=== PATIENT | female | born 2000 | race Caucasian/White ===

== ENCOUNTER 2024-02-22 23:40 | Observation (INO) | payer OTHER ==
[2024-02-23 00:08] VITALS: TEMP 98.3
[2024-02-23 00:30] LABS: AMNISURE TEST RESULTS NEGATIVE (NEGATIVE)
[2024-02-23 00:36] LABS: Appearance Turbid (Clear); Bacteria Many /HPF (None Seen); Bilirubin Negative (Negative); Blood Negative (Negative); Epithelial Cells Many /HPF (None Seen); Glucose, Urine Negative (Negative); Ketones 40 (Negative); Leukocyte Esterase Moderate (Negative); Nitrite Negative (Negative); Protein,Urine Dip 100 (Negative); RBC 0-2 /HPF (0-5); Specific Gravity >=1.030 (1.005-1.030); WBC 51-100 /HPF (0-5)
[2024-02-23 00:37] LABS: ADD URINE CULTURE? YES (NO); Trichomonas Few /HPF (None Seen)
[2024-02-23 00:39] LABS: Amphetamine,Urine NEGATIVE (NEGATIVE); Barbiturate,Urine NEGATIVE (NEGATIVE); Benzodiazepine,Urine NEGATIVE (NEGATIVE); Cocaine,Urine NEGATIVE (NEGATIVE); Opiate,Urine NEGATIVE (NEGATIVE); PCP,Urine NEGATIVE (NEGATIVE); THC,Urine POSITIVE (NEGATIVE)
[2024-02-23 00:42] LABS: Methadone,Urine NEGATIVE (NEGATIVE)
[2024-02-23 01:05] VITALS: BP 120/73; PULSE 102; RESP 17; O2SAT 98
--- NOTE | 2024-02-23 02:53 | PCM.HP ---
History of Present Illness - Chief Complaint Chief Complaint: R/O labor Date: 02/23/24 History of Present Illness: is a 23 year old female. P1001 @ 38 1/7 weeks presented from half-way C/O contractions and pressure. Pt received care at hospital in [place] and was supposed to have a planned c section tomorrow but was arrested. She came in c/o painful contractions, no LOF +FM UA showed trace protein, BP not elevated. Pt has a history of A fib and is on Metoprolol. POBHx: C/S x 1 PGYN:Non contributory PMHX: A fib, resolved PSHx: C/section PE: VS 131/93, 120/73 P99 rr 19 Pelvic: Closed/anterior/floating NST baseline 140 normal variability Contractions: q 10 minutes Ext: No edema A/P 23 y/o P1 previous c/section c/o abd pain but no evidence of labor Stable for D/C to half-way Pt will contact OB provider in [place] Gabriela Senior MD Medications & Allergies Home Medications: Home Medication List Pnv No.95/Ferrous Fum/Folic AC [ Vitamin Tablet] 1 each PO DAILY 02/22/24 [History Confirmed 02/22/24] Allergies/Adverse Reactions: Allergies Allergy/AdvReac Type Severity Reaction Status Date / Time magnesium AdvReac Rash Verified 02/22/24 23:57 - Social History Smoking Status: Never smoker Exposure to second hand smoke: Yes - Social Determinants of Health Will the patient participate in the screening: Yes Do you worry about a steady place to live?: No Do you have any problems with any of the following?: No known problems In the past 12 months,have you had to go without utilities?: No Have you or anyone in your house had to go without enough: No Transportation Issues: No Has anyone in your support network made you feel unsafe?: No Does the patient want assistance with any of the above?: No - Physical Exam Vital Signs: Vital Signs - 24 hr Temp Pulse Resp BP BP Pulse Ox 02/23/24 00:20 102 H 17 120/73 98 02/23/24 00:00 98.3 F 99 H 18 131/93 99 02/22/24 23:50 98.3 F 99 H 18 131/93 99 Results - Labs Lab/Micro Results: Lab Results-Last 24 Hours 02/22/24 02/23/24 Range/Units 00:18 00:18 Urine Color Dark Yellow A (Yellow) Urine Appearance Turbid A (Clear) Urine pH 6.0 (4.6-8.0) Ur Specific [place] >=1.030 A (1.005-1.030) Urine Protein 100 A (Negative) Urine Glucose (UA) Negative (Negative) mg/dL Urine Ketones 40 A (Negative) Urine Blood Negative (Negative) Urine Nitrite Negative (Negative) Urine Bilirubin Negative (Negative) Urine Urobilinogen 1.0 A (0.2) mg/dL Ur Leukocyte Esterase Moderate A (Negative) U Hyaline Cast (Auto) 3-5 A (0-2) /LPF Urine Microscopic RBC 0-2 (0-5) /HPF Urine Microscopic WBC 51-100 A (0-5) /HPF Ur Epithelial Cells Many A (None Seen) /HPF Urine Bacteria Many A (None Seen) /HPF Urine Trichomonas Few A (None Seen) /HPF Urine Culture Reflexed YES (NO) Urine Opiates Level NEGATIVE (NEGATIVE) Ur Methadone NEGATIVE (NEGATIVE) Urine Barbiturates NEGATIVE (NEGATIVE) Ur Phencyclidine (PCP) NEGATIVE (NEGATIVE) Urine Amphetamine NEGATIVE (NEGATIVE) U Benzodiazepine Level NEGATIVE (NEGATIVE) Urine Cocaine NEGATIVE (NEGATIVE) Urine Marijuana (THC) POSITIVE A (NEGATIVE)
== END 2024-02-23 03:27 | disposition home or self-care (01) ==
LOC: OB 23:40
PROVIDERS: ADMIT Obstetrics & Gynecology; ATTEND Obstetrics & Gynecology
DX: Z34.83 Encounter for supervision of other normal pregnancy, third trimester (principal); Z3A.31 31 weeks gestation of pregnancy
CPT/HCPCS: 80307; 81001; 84112; 87086; G0378; G0379

== ENCOUNTER 2024-02-23 18:39 | Observation (INO) | payer OTHER ==
[2024-02-23 19:02] VITALS: BP 130/83; PULSE 96; RESP 18; TEMP 98.4; O2SAT 96
[2024-02-23 19:31] LABS: AMNISURE TEST RESULTS NEGATIVE (NEGATIVE)
== END 2024-02-23 20:15 | disposition home or self-care (01) ==
LOC: OB 18:39
PROVIDERS: ADMIT Obstetrics & Gynecology; ATTEND Obstetrics & Gynecology
DX: Z34.83 Encounter for supervision of other normal pregnancy, third trimester (principal); Z3A.38 38 weeks gestation of pregnancy; Z59.811 Housing instability, housed, with risk of homelessness
CPT/HCPCS: 84112